=== PATIENT | male | born 1955 ===

== ENCOUNTER 2018-12-25 00:54 | Inpatient (IN) | payer OTHER ==
[2018-12-24 14:32] LABS: INR 0.99
[~2018-12-25] VITALS: Ht 165.1 cm; Wt 84.8 kg
[2018-12-25] VITALS (18 sets, daily range): BP systolic 98–126; BP diastolic 70–86
[~2018-12-25 00:54] MED LIST: AMLO-127 PO; ASPI-1471 PO; ATOR10TA24 PO; GLUC100026 PO; LACT1CAP6 PO; LANI SUBQ; LISI-353 PO; METF-452 PO; MONT10TA PO; MULT1TAB54 PO; OMEG-11 PO; PANT40TA65 PO; PREG100C44 PO; VITA400T7 PO; [UNRECOGNIZED DRUG - OTHER]
--- NOTE | 2018-12-25 03:25 | LEVENE H&P ---
DATE OF ADMISSION: December 25, 2018 IDENTIFICATION/CHIEF COMPLAINT Nathan is a 63-year-old gentleman with a work-related injury to his left knee. HISTORY OF PRESENT ILLNESS Patient has a history of old meniscal injury to his knee. He has developed severe post-traumatic arthritis, painful and debilitating, refractory to conservative care. Surgery is indicated to relieve symptoms after failure of nonoperative measures. PAST MEDICAL HISTORY Notable for hypertension, controlled on medication; type 2 diabetes; acid reflux disease. PAST SURGICAL HISTORY Notable for spinal cord cyst, cholecystectomy, ring finger injury, and a broken arm. ALLERGIES He denies any known drug allergies. CURRENT MEDICATIONS 1. Metformin 500 mg p.o. b.i.d. 2. Lisinopril/hydrochlorothiazide 20/12.5 mg, one p.o. daily. 3. Amlodipine 10 mg p.o. each evening. 4. Montelukast 10 mg once a day. 5. Atorvastatin 10 mg p.o. daily. 6. Pantoprazole 40 mg p.o. daily. 7. Baby aspirin once a day. 8. Various vitamins. FAMILY HISTORY Notable for a mother with leukemia. SOCIAL HISTORY Negative for tobacco and alcohol use. REVIEW OF SYSTEMS Negative. PHYSICAL EXAMINATION GENERAL: This is a healthy male who appears stated age. HEENT: Normocephalic, atraumatic. NECK: Supple. LUNGS: Clear. HEART: Regular. ABDOMEN: Soft. ORTHOPEDIC: Left knee has varus alignment. He is stiff at end range. Effusion is present. Crepitus noted. Gross stability is good. Extensor function intact. RADIOGRAPHIC STUDIES Radiographs demonstrate end-stage knee DJD. ASSESSMENT Left knee post-traumatic arthritis, painful and debilitating, refractory to conservative care. PLAN Per patient request, we will proceed with total knee arthroplasty. Nature of the procedure, risks, benefits, and the anticipated rehab course were reviewed. Risks include but are not limited to , major medical or anesthetic complication, infection, neurovascular injury, blood transfusion, stiffness, scarring, fracture, tendon rupture, persistent or recurrent pain, need for additional surgery, other unforeseen. He understands and wishes to proceed. Signed permit was placed in the chart. No guarantees were given or implied. [facility]
[2018-12-25] MEDS ORDERED: VANCOMYCIN 1 GM VIAL ONE (06:49)
[2018-12-25] MEDS ORDERED: TRANEXAMIC AC 1000 MG/10ML SDV 1,000 MG in DEXTROSE 5% 50 ML BAG 50 ML IV ONE (07:15)
[2018-12-25] MEDS ORDERED: PREGABALIN 150 MG CAPSULE PO ONE (07:15)
[2018-12-25] MEDS ORDERED: MIDAZOLAM 2 MG/2 ML VIAL IVP PRN (07:15)
[2018-12-25] MEDS ORDERED: NORMOSOL R SOLN(*) 1000 ML BAG 1,000 ML IV PRN ×2 (07:15→11:20)
[2018-12-25] MEDS ORDERED: ACETAMINOPHEN 500 MG TAB PO ONE (07:15)
[2018-12-25] MEDS ORDERED: ceFAZolin(*) 2GM/D5W 50ML 50 ML IVPB ONE (07:15)
[2018-12-25] MEDS ORDERED: LIDOCAINE/SOD BICARB 8.4% SYR ID ONE (07:15)
[2018-12-25] MEDS ORDERED: ROPIVACAINE/EPI/CLONIDINE/KET 50 ML SYRINGE INJ ONE (07:15)
[2018-12-25] MEDS ORDERED: CELECOXIB 200 MG CAP PO ONE (07:15)
[2018-12-25] MEDS ORDERED: fentaNYL CITR 100 MCG/2 ML AMP ONE ×2 (07:58→09:58)
[2018-12-25] MEDS ORDERED: PROPOFOL EMUL(*) 10MG/ML 20 ML 20 ML ONE (07:59)
[2018-12-25] MEDS ORDERED: LIDOCAINE 2% IV 100 MG/5ML SYR ONE (07:59)
[2018-12-25] MEDS ORDERED: DEXAMETHASONE SOD PHOS 10MG/ML ONE (08:25)
[2018-12-25] MEDS ORDERED: KETAMINE HCL 200 MG/20 ML MDV ONE ×2 (08:26→09:30)
[2018-12-25] MEDS ORDERED: ONDANSETRON 4 MG/2 ML VIAL ONE (10:35)
[2018-12-25] MEDS ORDERED: ZOLPIDEM TARTRATE 5 MG TAB PO PRN (11:20)
[2018-12-25] MEDS ORDERED: ACETAMINOPHEN 325 MG TAB PO PRN (11:20)
[2018-12-25] MEDS ORDERED: BENZOCAINE/MENTHOL 1 EACH LOZG PO PRN (11:20)
[2018-12-25] MEDS ORDERED: BISACODYL 10 MG SUPP PR PRN (11:20)
[2018-12-25] MEDS ORDERED: PROMETHAZINE 25 MG/ML 1 ML AMP IVP PRN (11:20)
[2018-12-25] MEDS ORDERED: DIAZEPAM 5 MG TAB PO PRN (11:20)
[2018-12-25] MEDS ORDERED: diphenhydrAMINE 50 MG/ML VIAL IVP PRN (11:20)
[2018-12-25] MEDS ORDERED: diphenhydrAMINE 25 MG CAP PO PRN (11:20)
[2018-12-25] MEDS ORDERED: MAGNESIUM HYDROXIDE* 30ML UDCP PO PRN (11:20)
[2018-12-25] MEDS ORDERED: FLUSH 10 ML SYR IVP PRN (11:20)
[2018-12-25] MEDS ORDERED: ALBUTEROL/IPRATROPIUM 3 ML NEB ONE (11:41)
[2018-12-25] MEDS ORDERED: LR(*) 1000 ML BAG 0 ML ONE (12:03)
--- NOTE | 2018-12-25 13:42 | Hospitalist Consultation ---
History of Present Illness Requesting Physician Dr. Muller Reason for Consult Medical Management of Comorbidities Chief Complaint s/p left knee replacement History of Present Illness He was admitted s/p left knee replacement. It is reported he sustained a femur fracture during surgery. He is wearing a knee immobilizer. History Problems: (1) Hyperlipidemia Status: Chronic (2) GERD (gastroesophageal reflux disease) Status: Chronic (3) Type 2 diabetes mellitus Status: Chronic (4) Hypertension Status: Chronic Home Meds Reported Medications [Kennalog] No Conflict Check 12/24/18 Glucosamine Sulfate 2KCL (GLUCOSAMINE) 1,000 Mg Tablet, 1000 MG PO QDAY 12/18/18 Lactobacillus Combination No.4 (PROBIOTIC) 1 Each Capsule, 1 EACH PO QDAY, CAPSULE 12/18/18 Vitamin E Mixed (VITAMIN E) 400 Unit Tablet, 400 UNIT PO QDAY 12/18/18 Multivitamin (MULTI-VITAMIN DAILY) 1 Each Tablet, 1 EACH PO QDAY 12/18/18 [place]-3 Fatty Acids/Fish Oil (FISH OIL 1,000 MG CAPSULE) 1 Each Capsule, 1 EACH PO BID, CAPSULE 12/18/18 Aspirin (ASPIR 81) 81 Mg Tablet.dr, 81 MG PO QDAY, TAB 12/18/18 Insulin Glargine (LANTUS) 100 Unit/Ml Soln, 5 UNIT SUBQ QAM, ML 12/18/18 Pregabalin (LYRICA) 100 Mg Capsule, 100 MG PO TID, CAPSULE 12/18/18 Montelukast Sodium (SINGULAIR) 10 Mg Tablet, 1 TAB PO QDAY, TAB 12/18/18 Pantoprazole Sodium (PANTOPRAZOLE SODIUM) 40 Mg Tablet.dr, 40 MG PO QDAY, TAB.SR 12/18/18 Atorvastatin Calcium (LIPITOR) 10 Mg Tablet, 1 TAB PO QDAY, TAB 12/18/18 Amlodipine Besylate (AMLODIPINE BESYLATE) 10 Mg Tablet, 1 TAB PO QDAY, TAB 12/18/18 Lisinopril/Hydrochlorothiazide (LISINOPRIL-HCTZ 20-12.5 MG TAB) 1 Each Tablet, 1 EACH PO QDAY 12/18/18 Metformin Hcl (METFORMIN HCL) 1,000 Mg Tablet, 1 TAB PO BID, TAB 12/18/18 Allergies: Coded Allergies: No Known Drug Allergies (Unverified , 12/18/18) Patient History: FH: leukemia MOTHER Hx Smoking: Yes (QUIT 30 YEARS AGO ) Smoking Status: Former Smoker When Quit Tobacco?: 30 years ago Caffeine Intake: Tea, Soda Hx Alcohol Use: Yes Alcohol Used: Beer Hx Substance Use Disorder: No Review of Systems All Systems Reviewed/Normal: Yes, Except as Noted Exam Vital Signs Vital Signs Date Time Temp Pulse Resp B/P (MAP) Pulse Ox O2 Delivery O2 Flow Rate FiO2 12/25/18 12:34 92 Nasal Cannula 2.0 12/25/18 12:31 98.5 86 20 105/73 (84) General Appearance: Alert, Awake, No Acute Distress, Afebrile Neuro: No Gross deficits Cardiovascular: Regular Rate and Rhythm Respiratory: No Respiratory Distress, Clear to Auscultation Psych: Alert & Oriented X3, Appropriate Mood & Affect Assessment and Plan Problems: (1) Status post left knee replacement Status: Acute Assessment & Plan: Followed by Dr. Muller. He will be placed on Aspirin for DVT prophylaxis. He has no history of DVT. (2) Type 2 diabetes mellitus Status: Chronic Assessment & Plan: Continue chronic Metformin and Lantus. He will be placed on SS insulin #2, ADA diet, and AC/HS blood glucose monitoring. (3) Hypertension Status: Chronic Assessment & Plan: He is on chronic treatment with Amlodipine, Lisinopril and Hydrochlorothiazide. Amlodipine and Lisinopril have been restarted with hold parameters. (4) Hyperlipidemia Status: Chronic Assessment & Plan: Continue chronic Atorvastatin. (5) GERD (gastroesophageal reflux disease) Status: Chronic Assessment & Plan: Continue chronic Protonix. Venous Thromboembolism Antithrombotics Is Pt On Any Antithrombotics?: No Problem Qualifiers (1) Hypertension: Hypertension type: essential hypertension Qualified Codes: I10 - Essential (primary) hypertension LUKE MCCULLOUGH BIOLOGY LABORATORY ASSISTANT Dec 25, 2018 13:42
--- NOTE | 2018-12-25 13:53 | RADIOLOGY IMAGING REPORT ---
FACILITY: [facility] [place] PATIENT NAME: Perez Mckeon : 1955 MR: [id number] V: [id number] EXAM DATE: ORDERING PHYSICIAN: PEREZ ALEJANDRO TECHNOLOGIST: Location: [facility] [place] Patient: Perez Mckeon : 1955 Visit/Account:[id number] Date of Sevice: 12/25/2018 Technique: KNEE LIMITED LEFT HISTORY: S/P TOTAL LEFT KNEE ARTHROPLASTY Comparison studies: None FINDINGS: Noted is a left knee arthroplasty. There is no acute fracture. 2 cortical screws traverse the medial femoral condyle extending into the femoral metadiaphysis. Expected adjacent postoperativ e changes are noted. Atherosclerotic findings are present. IMPRESSION: 1. Left knee arthroplasty without evidence of acute hardware complication. 2. Atherosclerosis. Report Dictated By: Fred Almendarez DO at 12/25/2018 1:45 PM Report E-Signed By: Fred Almendarez DO at 12/25/2018 1:47 PM WSN:[id number]
--- NOTE | 2018-12-25 14:22 | NUR ---
Physical Therapy Impression PT eval complete. Noted orders for L LE WBAT, CPM, no ROM restrictions, and weightbearing while in knee immobilizer. Pt able to perform bed mobility with SBA, sit<>sit with CGA, and ambulate 25' with RW and CGA with knee immobilizer in place. CPM fitting and placed with ROM at 0-40 deg. Pt denies pain at this time. Recommend OP PT at DC. Physical Therapy Goals 1. Mod I bed mobility. 2. Mod I transfers. 3. Mod I gait x 150' with RW. 4. Mod I use of CPM. 5. Appropriate use of knee immobilizer. Patient's Goals
[2018-12-25] MEDS: PREGABALIN 50 MG CAPSULE PO SCH ×2 (14:32→21:21)
[2018-12-25] MEDS ORDERED: NS(*) 0.9% 250 ML BAG 250 ML ONE (16:24)
[2018-12-25] MEDS: CELECOXIB 200 MG CAP PO SCH (16:31)
[2018-12-25] MEDS: ceFAZolin(*) 1 GM VIAL 1 GM in NS(*) 0.9% 100 ML MINI-BAG 100 ML IVPB SCH (16:31)
[2018-12-25] MEDS: APAP/HYDROCODONE 325/7.5 TAB PO PRN ×2 (16:31→21:21)
[2018-12-25] MEDS: INSULIN HUM LISPRO 100 UN/ML 3 ML VIAL SUBQ PRN ×2 (16:50→21:43)
[2018-12-26 00:03] VITALS: BP 111/71
[2018-12-26] MEDS: ceFAZolin(*) 1 GM VIAL 1 GM in NS(*) 0.9% 100 ML MINI-BAG 100 ML IVPB SCH ×2 (01:20→09:18)
[2018-12-26 03:29] VITALS: BP 122/77
--- NOTE | 2018-12-26 05:39 | OPERATIVE REPORT 1 ---
EVENT DATE: December 25, 2018 SURGEON: Juanjo Muller MD ANESTHESIOLOGIST: John Flores MD ANESTHESIA: General plus spinal. TRANSPORTATION SALES CONSULTANT: Ramu Ferguson PA-C PREOPERATIVE DIAGNOSIS Left knee post-traumatic arthritis. POSTOPERATIVE DIAGNOSIS Left knee post-traumatic arthritis. PROCEDURE PERFORMED Left total knee arthroplasty and fixation of intraoperative nondisplaced medial epicondylar fracture. ESTIMATED BLOOD LOSS Minimal. DRAINS None. SPECIMENS None. COMPLICATIONS Intraoperative nondisplaced fracture of the medial epicondyle. TOURNIQUET TIME 55 minutes. IMPLANTS USED [employer] Triathlon knee system with a 4 left PS femur, 5 standard tibial base plate, 36 mm [place] symmetric all-polyethylene patellar button, a 13 mm PS tibial tray liner, and a 6.5 x 4.5 Synthes screw with washers. INDICATIONS FOR PROCEDURE Nathan is a 63-year-old gentleman with a work-related injury to his knee. He has gone on to develop end-stage post-traumatic arthritis. Surgery is indicated to relieve symptoms after failure of nonoperative measures. DESCRIPTION OF PROCEDURE Patient was taken to the operating room and placed supine on the operating table. General anesthesia was induced after spinal block was administered by the anesthesiologist. Antibiotics and TXA were administered IV. Left lower extremity was prepped and draped in the usual sterile fashion for knee arthroplasty. The limb was exsanguinated with an Esmarch bandage. The tourniquet was inflated to 250 mmHg. A longitudinal incision was made in the midline, carried down through the skin and subcu to the extensor mechanism. A full-thickness flap was developed far enough medial to allow a medial parapatellar arthrotomy to be performed. The patella was everted. The knee was brought into the flexed position. Fat pad, anterior horns of the menisci, and the cruciate ligaments were debrided. A titrated medial release of soft tissue off the anteromedial tibia was begun subperiosteally to help to balance the knee. A step drill was used to enter the distal femur. A [id number] alignment guide was used to engage the isthmus, cut set for 5 degrees valgus relative to the anatomic axis. A 10 mm resection block was applied and pinned. Distal femoral cut was made with an oscillating saw. AP sizing guide was applied to the distal femur and positioned for 3 degrees of external rotation relative to the posterior condyles. Size 4 was optimal without risk of notching. The 4-in-1 cutting block was applied. Anterior, posterior, posterior chamfer, and anterior chamfer cuts were made respectively. PS block was applied and centered. Medial and lateral bone was removed from the box. Trial femur had nice [id number] fit. Attention was turned to tibial preparation. An extramedullary guide was applied, positioned for varus and valgus, posterior slope and rotation. This was set to resect 9 mm from the relatively intact lateral tibial plateau. It was dropped down a couple more millimeters to assure an adequate cut. Block was pinned. Extramedullary alignment check was made and the cut was made with an oscillating saw. At this point, additional osteophytes were removed in posterior condylar bone on the back of the posteromedial femur, and posterolateral femur was removed. The osteophytes were resected around the proximal tibia, and a bit of additional soft tissue release was obtained without removing any of the MCL insertion. The size 5 tibial baseplate provided optimal bony coverage without soft tissue overhang. It was inserted along with a trial liner and trial femur. The knee was brought to full extension. The patella was taken from a starting thickness of 25 mm to residual of 14 with a patellar clamp and oscillating saw. A 36 provided optimal bony coverage. Lug holes were drilled. Patella tracked nicely with a no-touch technique. Final tibial preparation consisted of assuring appropriate rotational and translational position of the component. The box was reamed and fin was punched. In order to continue to achieve better balance and achieve rectangular gaps, a bit of additional bone was scalloped away on the medial side, short of the baseplate. This leaves only a very small, shallow defect at the posteromedial femur that will require filling with cement. This is about 5% of the upper surface of the plateau. It should not compromise stability. At this point, the gaps were balanced and symmetric. Wounds were copiously lavaged. A mix of methacrylate was made and the components were cemented in a single stage. Once the cement had fully polymerized, the tourniquet was deflated and meticulous hemostasis was assured. The wound was copiously lavaged to remove all loose debris. Various trial liners were inserted next. Although the gaps were rectangular and seemed well balanced, as the 13 trial was pushed into the gap in flexion, it was noted that the crack propagated in a vertical shell-like distribution along the area deep to the medial epicondyle. This displaced a few millimeters but was still hinged on an intact superior and posterior soft tissue sleeve. This will require fixation to assure stability. The 13 liner was ideal, and so the wound was copiously lavaged. Meticulous hemostasis was assured, and the actual liner was impacted into the baseplate and locked. The fracture was then reduced with a pointed tenaculum with leg in figure-four position to take tension off the MCL. K-wire was placed first for provisional fixation, and then this was secured with a 6.5 partially threaded cancellous lag screw, which achieved bicortical purchase. The screw was directed anterior, proximal, and lateral from the anterior aspect of the avulsed bone fragment. A second screw for rotational control was placed. This was a 4.5 screw with a small soft tissue washer. Initially a spiked washer was used, but this entrapped soft tissue and prevented the knee from moving smoothly through range of motion. This was exchanged to a smooth washer, which was advanced down, and the fracture was quite stable and the knee was well balanced in both flexion and extension. The wound was then copiously lavaged. Meticulous hemostasis was assured. Layered closure was performed with #2 Ethibond for the deep arthrotomy, 3-0 Vicryl for the skin, and a ZipLine closure. Xeroform was applied followed by a dry sterile dressing, compression wrap, and a knee immobilizer. Plan for postop rehab is to weight-bear as tolerated with the immobilizer for the first couple of weeks and then probably transition to a Playmaker or similar brace for an additional four weeks. As the epicondylar avulsion fracture heals, there will be no restrictions on range of motion. [facility]
[2018-12-26 06:59] VITALS: BP 115/78
--- NOTE | 2018-12-26 07:08 | Hospitalist Progress Note ---
Subjective Progress Notes Subjective Pain control is reasonable. Up to BR and felt steady. O2 sats are low on RA. ASA for DVT prophylaxis. Physical Exam Vital Signs Date Time Temp Pulse Resp B/P (MAP) Pulse Ox O2 Delivery O2 Flow Rate FiO2 12/26/18 06:59 97.8 79 18 115/78 (90) 91 Nasal Cannula 1.0 Intake and Output 12/26/18 07:02 Intake Total 2055 ml Output Total 100 ml Balance 1955 ml Intake Oral 30 ml IV Total 5 ml Output Estimated Blood Loss 100 ml # Voids 6 General Appearance: Alert, Awake, No Acute Distress, Afebrile Cardiovascular: Regular Rate and Rhythm, Other (S1S2 jare normal. No murmurs, galops or rubs.) Respiratory: Other (Very mild expiratory wheezing bilaterally but much improvd compared to last night (according to nurse).) Extremities: Soft and Non Tender, Warm, Pulses Psych: Alert & Oriented X3, Appropriate Mood & Affect Assessment and Plan Problems: (1) Status post left knee replacement Status: Acute Assessment & Plan: Followed by Dr. Muller. On Aspirin for DVT prophylaxis. He has no history of DVT. PT to start today. Instructed on proper use of inspirometer. (2) Type 2 diabetes mellitus Status: Chronic Assessment & Plan: Continue chronic Metformin and Lantus. He will be placed on SS insulin #2, ADA diet, and AC/HS blood glucose monitoring. Glucose running around 200. Not watching diet well. (3) Hypertension Status: Chronic Assessment & Plan: He is on chronic treatment with Amlodipine, Lisinopril and Hydrochlorothiazide. Amlodipine and Lisinopril have been restarted with hold parameters. BP well controlled at this point. Will follow closely. (4) Hyperlipidemia Status: Chronic Assessment & Plan: Continue chronic Atorvastatin. (5) GERD (gastroesophageal reflux disease) Status: Chronic Assessment & Plan: Continue chronic Protonix. Time Spent on Plan of Care: < 30 min Exam Sepsis Risk: No Definite Risk Problem Qualifiers (1) Hypertension: Hypertension type: essential hypertension Qualified Codes: I10 - Essential (primary) hypertension NETTIE GASPAR MD FACP Dec 26, 2018 07:08
[2018-12-26] MEDS ORDERED: ASPI-757 PO (08:32)
[2018-12-26] MEDS ORDERED: ATORVASTATIN 10 MG TAB PO SCH (09:00)
[2018-12-26] MEDS ORDERED: MONTELUKAST SODIUM 10 MG TAB PO SCH (09:00)
[2018-12-26] MEDS ORDERED: PANTOPRAZOLE SOD 40 MG TABEC PO SCH (09:00)
[2018-12-26] MEDS ORDERED: metFORMIN HCL 500 MG TAB PO SCH (09:00)
[2018-12-26] MEDS ORDERED: LISINOPRIL 20 MG TAB PO SCH (09:00)
[2018-12-26] MEDS ORDERED: amLODIPine BESYL(*) 5 MG TAB PO SCH (09:00)
[2018-12-26] MEDS ORDERED: INSULIN GLARGINE 100 U/ML 3 ML PEN SUBQ SCH (09:00)
[2018-12-26] MEDS ORDERED: ASPIRIN 325 MG TAB PO SCH (09:00)
[2018-12-26] MEDS: CELECOXIB 200 MG CAP PO SCH (09:20)
[2018-12-26] MEDS: PREGABALIN 50 MG CAPSULE PO SCH ×2 (09:21→13:35)
[2018-12-26] MEDS: APAP/HYDROCODONE 325/7.5 TAB PO PRN (11:57)
[2018-12-26] MEDS ORDERED: HYDR-654 PO (13:32)
[2018-12-26 13:36] VITALS: BP 128/85
--- NOTE | 2018-12-26 13:40 | NUR ---
Physical Therapy Impression Pt with good progress and safe to discharge when medically appropriate. Pt demonstrating independence with knee brace. Supine to sit transfer performed with Jim, HOB raised. Sit<>stand transfers performed with SBA and use of RW. Pt ambulated 275 with SBA and use of RW. Pt demonstrating good tolerance to mobility with no complaints of pain throughout ambulation. Pt able to ascend/descend 1 stair with SBA. Verbal cues provided for foot sequencing. Pt performing stair training without difficulty. Pt concerned about pain medicine managment, and requesting to stay until more certainty over medicine. Rec OP PT. Pt left sitting in reclining chair with knee brace still on. Physical Therapy Goals 1. Mod I bed mobility. 2. Mod I transfers. 3. Mod I gait x 150' with RW. 4. Mod I use of CPM. 5. Appropriate use of knee immobilizer. Patient's Goals
--- NOTE | 2018-12-26 13:40 | NUR ---
This Physical Therapist or Access Control Officer was present for the entire physical therapy session directing the services, making the skilled judgement, and was not engaged in treating another patient or doing another task at the same time as the treatment session. Addendum: 12/26/18 at 1341 by FANTA MANCILLA PT Amended: Links added.
[2018-12-26 14:48] VITALS: Ht 165.1 cm; Wt 84.8 kg
== END 2018-12-26 14:25 | disposition home or self-care (01) | DRG 470 ==
LOC: OR 00:54 → MED 12:23
PROVIDERS: ADMIT Orthopaedic Surgery; ATTEND Orthopaedic Surgery
PROC: 0QSC06Z Reposition Left Lower Femur with Intramedullary Internal Fixation Device, Open Approach (ICD-10-PCS; 2018-12-25)
PROC: 0SRD0J9 Replacement of Left Knee Joint with Synthetic Substitute, Cemented, Open Approach (ICD-10-PCS; principal; 2018-12-25 08:22)
DX: M17.32 Unilateral post-traumatic osteoarthritis, left knee (principal); M96.662 Fracture of femur following insertion of orthopedic implant, joint prosthesis, or bone plate, left leg; M25.762 Osteophyte, left knee; I10 Essential (primary) hypertension; E11.9 Type 2 diabetes mellitus without complications; E78.5 Hyperlipidemia, unspecified; K21.9 Gastro-esophageal reflux disease without esophagitis; E66.9 Obesity, unspecified; Y83.8 Other surgical procedures as the cause of abnormal reaction of the patient, or of later complication, without mention of misadventure at the time of the procedure; Y79.3 Surgical instruments, materials and orthopedic devices (including sutures) associated with adverse incidents; Z90.49 Acquired absence of other specified parts of digestive tract; Z79.84 Long term (current) use of oral hypoglycemic drugs; Z87.891 Personal history of nicotine dependence; Z79.4 Long term (current) use of insulin; Z68.31 Body mass index [BMI] 31.0-31.9, adult
CPT/HCPCS: 36415; 36416; 82948; 85610; 86850; 86900; 86901; 94640; 97161; C1713; C1776; J0690; J1100; J1815; J2001; J2250; J2405; J2704; J3010; J3370; J3490; J7060; L1830